=== PATIENT | male | born 1990 ===

== ENCOUNTER 2017-09-18 20:06 | Observation (INO) | payer MEDICAID ==
--- NOTE | 2017-09-18 20:08 | ED PDOC ---
"Arrival/HPI - General Time Seen by Provider: 09/18/17 20:08 Historian: Patient - History of Present Illness Narrative History of Present Illness (Text): 09/18/17 20:08 27 y/o male, pmh including gastric by pass in 2010 at [facility], [place], c/o epigastric and lt. lower quadrant abdominal pain started yesterday. pt. stated that he has epigastric and lt. sided abdominal pain, associated with diarrhea and feeling nauseous, no vomiting, no palpitation, no numbness or tingling, no rash, no night sweat, no rash, no other medical or psychological complaints. Past Medical History - Provider Review Nursing Documentation Reviewed: Yes Family/Social History - Physician Review Nursing Documentation Reviewed: Yes Family/Social History: Unknown Family HX Allergies/Home Meds Allergies/Adverse Reactions: Allergies No Known Allergies Allergy (Verified 09/18/17 20:14) Home Medications: Home Meds Medication Instructions Recorded Confirmed No Known Home Med 09/18/17 09/18/17 Review of Systems - Review of Systems Constitutional: absent: Fatigue, Fevers Eyes: absent: Vision Changes ENT: absent: Hearing Changes Respiratory: absent: SOB, Cough Cardiovascular: Syncope. absent: Chest Pain Gastrointestinal: Abdominal Pain, Diarrhea, Nausea. absent: Vomiting Skin: absent: Rash, Pruritis Neurological: absent: Headache, Dizziness, Facial Droop Psychiatric: absent: Anxiety, Depression Physical Exam Vital Signs Reviewed: Yes Vital Signs Temp Pulse Resp BP Pulse Ox 09/19/17 00:37 77 18 143/83 95 09/18/17 22:50 75 18 136/75 100 09/18/17 20:14 98.5 F 94 H 18 130/87 95 Temperature: Afebrile Blood Pressure: Normal Pulse: Regular Respiratory Rate: Normal Appearance: Positive for: Well-Appearing, Non-Toxic, Comfortable Pain Distress: Mild Mental Status: Positive for: Alert and Oriented X 3 - Systems Exam Head: Present: Atraumatic, Normocephalic Pupils: Present: PERRL Extroacular Muscles: Present: EOMI Conjunctiva: Present: Normal Mouth: Present: Moist Mucous Membranes Neck: Present: Normal Range of Motion Respiratory/Chest: Present: Clear to Auscultation, Good Air Exchange. No: Respiratory Distress, Accessory Muscle Use Cardiovascular: Present: Regular Rate and Rhythm, Normal S1, S2. No: Murmurs Abdomen: Present: Tenderness (epigastric and LLQ region, no cva tenderness, no rash, ), Normal Bowel Sounds. No: Distention, Peritoneal Signs, Rebound, Guarding Back: Present: Normal Inspection Upper Extremity: Present: Normal Inspection. No: Cyanosis, Edema Lower Extremity: Present: Normal Inspection. No: Edema Neurological: Present: GCS=15, Speech Normal, Motor Func Grossly Intact, Gait Normal, Memory Normal Skin: Present: Warm, Dry, Normal Color. No: Rashes Psychiatric: Present: Alert, Oriented x 3, Normal Insight, Normal Concentration Medical Decision Making ED Course and Treatment: 09/18/17 20:31 -labs/ua/rapid flu -CT abdomen and pelvis -IVF/pepcid/reglan -Observe and reassess 09/18/17 22:17 -Pt. just vomitted in the CT and has abdominal pain, morhine 4mg IV and zofran IV ordered. 09/18/17 23:23 -Labs are non-significant -Rapid flu is negative -UA pending -EKG: NSR @ 84 BPM, no ST elevation or depression, no T wave inversion. -Chest xray: no active disease -CT abdomen and pelvis: Dilatation of small bowel is visualized with multiple air-fluid levels. This is concerning for obstruction. There is a mildly enlarged mesenteric lymph node within the right lower quadrant measuring 1.3 x 0.8 cm, suggestive of mesenteric adenitis. Two 3 mm nodules are visualized within the right lung. -Pt. continuous vomiting, NG tube ordered. -admitting team paged. 09/19/17 00:10 -I spoke to the vice president underwriting Dr. Drew, discussed about the case, will come to evaluate the patient -I spoke to the surgical attending Dr. Duval, discussed about the case/labs/ radiology result, agreed to admit to her service. - Lab Interpretations Lab Results: 09/18/17 20:39 09/18/17 20:39 Lab Results 09/18/17 21:45: Urine Color Yellow, Urine Appearance Clear, Urine pH 6.0, Ur Specific [place] >= 1.030, Urine Protein Negative, Urine Glucose (UA) Negative, Urine Ketones Negative, Urine Blood Negative, Urine Nitrate Negative, Urine Bilirubin Negative, Urine Urobilinogen 0.2, Ur Leukocyte Esterase Negative 09/18/17 20:39: WBC 11.0, RBC 5.22, Hgb 16.1, Hct 49.3, MCV 94.4, MCH 30.8, MCHC 32.7, RDW 12.9, Plt Count 284, MPV 9.6, Gran % 76.5 H, Lymph % (Auto) 15.3 L, Towns % (Auto) 7.5 H, Eos % (Auto) 0.6 L, Baso % (Auto) 0.1, Gran # 8.38 H, Lymph # 1.7, Towns # 0.8 H, Eos # 0.1, Baso # 0.01 09/18/17 20:39: Sodium 138, Potassium 3.7, Chloride 105, Carbon Dioxide 21, Anion Gap 16, BUN 13, Creatinine 0.9, Est GFR ( Amer) > 60, Est GFR (Non- Af Amer) > 60, Random Glucose 108, Calcium 9.3, Magnesium 2.0, Total Bilirubin 0.7, AST 22, ALT 40, Alkaline Phosphatase 64, Total Protein 7.9, Albumin 4.3, Globulin 3.6, Albumin/Globulin Ratio 1.2, Lipase 41 09/18/17 20:39: PT 12.3, INR 1.08, APTT 31.5 09/18/17 20:39: Influenza Typ A,B (EIA) Negative for flu a/b - RAD Interpretation Radiology Orders: 09/18/17 20:27 ABD & PELVIS IV CONTRAST ONLY [CT] Stat 09/18/17 23:21 CHEST PORTABLE [RAD] Stat FINDINGS: Lower thorax: Mild patchy groundglass density and atelectatic changes are visualized within both lower lobes. Two 3 mm nodules are visualized within the right lung. ABDOMEN: Liver: No mass. Gallbladder and bile ducts: No calcified stones. No ductal dilation. Pancreas: Normal contour, without acute peripancreatic stranding. Spleen: No splenomegaly. Adrenals: No mass. REGIS DON | Final Radiology Report CONFIDENTIALITY STATEMENT This report is intended only for use by the referring physician, and only in accordance with law. If you received this in error, call [phone]. Page 2 of 2 Kidneys and ureters: No hydronephrosis. No solid mass. Stomach and bowel: Dilatation of small bowel is visualized with multiple air- fluid levels. This is concerning for obstruction, although a focal transition point is not visualized. Appendix: Not visualized. PELVIS: Bladder: No bladder stones visualized. Reproductive: Unremarkable as visualized. ABDOMEN and PELVIS: Intraperitoneal space: No free air. Bones/joints: Posterior disc bulging is visualized from L3-4 through L5-S1. Soft tissues: There is bilateral gynecomastia. There is a small herniation of fat into the umbilicus. Vasculature: No abdominal aortic aneurysm. Lymph nodes: There is a mildly enlarged mesenteric lymph node within the right lower quadrant measuring 1.3 x 0.8 cm, suggestive of mesenteric adenitis. Additional small mesenteric lymph nodes are visualized. IMPRESSION: 1. Dilatation of small bowel is visualized with multiple air-fluid levels. This is concerning for obstruction. 2. There is a mildly enlarged mesenteric lymph node within the right lower quadrant measuring 1.3 x 0.8 cm, suggestive of mesenteric adenitis. 3. Two 3 mm nodules are visualized within the right lung. 4. Incidental/non-acute findings are described above. Thank you for allowing us to participate in the care of your patient. Dictated and Authenticated by: Keenan Ruiz MD 09/18/2017 11:16 PM Eastern Time ([place] & [place]) Chest xray: no active pulmonary disease [employer] Worker: Radiologist - EKG Interpretation EKG Interpretation (Text): 09/20/17 14:47 NSR @ 85 BPM, no ST elevation or depression, T wave inversion on lead III. Interpreted by ED Physician: Yes Type: 12 lead EKG - Medication Orders Current Medication Orders: Discontinued Medications Famotidine (Pepcid) 20 mg IVP STAT STA Stop: 09/18/17 20:28 Last Admin: 09/18/17 20:44 Dose: 20 mg IVP Administration Document 09/18/17 20:44 AD (Rec: 09/18/17 20:44 AD [id number]) Charges for Administration # of IVP Administrations 1 Famotidine (Pepcid) 20 mg IVP Q12 [facility] Last Admin: 09/19/17 10:12 Dose: 20 mg IVP Administration Document 09/19/17 10:12 MCV (Rec: 09/19/17 10:13 MCV [id number]) Charges for Administration # of IVP Administrations 1 Hydromorphone HCl (Dilaudid) 0.5 mg IVP Q6H PRN PRN Reason: Pain, moderate (4-7) Last Admin: 09/19/17 07:02 Dose: 0.5 mg MAR Pain Assessment Document 09/19/17 07:02 [facility] (Rec: 09/19/17 07:03 [id number]) Pain Reassessment Is this a pain reassessment? No Presence of Pain Presence of Pain Yes Pain Scale Used Pain Scale Used Numeric Location Upper or Lower Upper Pain Location Body Site Abdomen Description Description Constant Intensity of Pain at present 8 Acceptable Level of Pain 2 Pain Behavior Facial Grimacing Alleviating Factors/Management Medication Techniques Alleviating Factors Medication IVP Administration Document 09/19/17 07:02 [facility] (Rec: 09/19/17 07:03 [id number]) Charges for Administration # of IVP Administrations 1 Sodium Chloride (Sodium Chloride 0.9%) 1,000 mls @ 100 mls/hr IV .Q10H [facility] Last Admin: 09/18/17 20:44 Dose: 100 mls/hr eMAR Start Stop Document 09/18/17 20:44 AD (Rec: 09/18/17 20:44 AD [id number]) Intravenous Solution Start Date 09/18/17 Start Time 20:44 Lactated Ringer's (Lactated Ringer's) 1,000 mls @ 150 mls/hr IV .Q6H40M [facility] Last Admin: 09/19/17 07:09 Dose: 150 mls/hr eMAR Start Stop Document 09/19/17 07:09 [facility] (Rec: 09/19/17 07:10 [id number]) Intravenous Solution Start Date 09/19/17 Start Time 07:10 Metoclopramide HCl (Reglan) 10 mg IVP STAT STA Stop: 09/18/17 20:28 Last Admin: 09/18/17 20:44 Dose: 10 mg IVP Administration Document 09/18/17 20:44 AD (Rec: 09/18/17 20:44 AD [id number]) Charges for Administration # of IVP Administrations 1 Metoclopramide HCl (Reglan) 10 mg IVP Q8H [facility] Stop: 09/20/17 06:01 Last Admin: 09/19/17 15:00 Dose: 10 mg IVP Administration Document 09/19/17 15:00 MCV (Rec: 09/19/17 15:23 [place] [id number]) Charges for Administration # of IVP Administrations 1 Morphine Sulfate (Morphine) 4 mg IVP STAT STA Stop: 09/18/17 22:15 Last Admin: 09/18/17 22:26 Dose: 4 mg MAR Pain Assessment Document 09/18/17 22:26 AD (Rec: 09/18/17 22:27 AD [id number]) Pain Reassessment Is this a pain reassessment? No Presence of Pain Presence of Pain Yes Location Left, Right or Bilateral Left Pain Location Body Site Abdomen Description Intensity of Pain at present 8 Pain Behavior Facial Grimacing IVP Administration Document 09/18/17 22:26 AD (Rec: 09/18/17 22:27 AD [id number]) Charges for Administration # of IVP Administrations 1 Morphine Sulfate (Morphine) 2 mg IVP Q4H PRN PRN Reason: Pain, moderate (4-7) Last Admin: 09/19/17 15:00 Dose: 2 mg MAR Pain Assessment Document 09/19/17 15:00 [facility] (Rec: 09/19/17 15:00 [id number]) Pain Reassessment Is this a pain reassessment? No Pain Scale Used Pain Scale Used Numeric Location Pain Location Body Site Abdomen Description Description Constant Intensity of Pain at present 7 Pain Behavior Facial Grimacing Aggravating Factors None Alleviating Factors/Management Medication Techniques Alleviating Factors Medication IVP Administration Document 09/19/17 15:00 MCV (Rec: 09/19/17 15:00 [place] [id number]) Charges for Administration # of IVP Administrations 1 Ondansetron HCl (Zofran Inj) 8 mg IVP STAT STA Stop: 09/18/17 22:15 Last Admin: 09/18/17 22:26 Dose: 8 mg IVP Administration Document 09/18/17 22:26 AD (Rec: 09/18/17 22:26 AD [id number]) Charges for Administration # of IVP Administrations 1 Ondansetron HCl (Zofran Inj) 4 mg IVP Q4H PRN PRN Reason: Nausea/Vomiting Last Admin: 09/19/17 10:10 Dose: 4 mg IVP Administration Document 09/19/17 10:10 MCV (Rec: 09/19/17 10:10 [facility]CV [id number]) Charges for Administration # of IVP Administrations 1 - PA / NEUROLOGY EPILEPSY PHYSICIAN / Resident Statement MD/DO has reviewed & agrees with the documentation as recorded. Disposition/Present on Arrival - Present on Arrival Any Indicators Present on Arrival: No History of DVT/PE: No History of Uncontrolled Diabetes: No Urinary Catheter: No History of Decub. Ulcer: No - Disposition Have Diagnosis and Disposition been Completed?: Yes Diagnosis: Small bowel obstruction, Lung nodule, Mesenteric adenitis Disposition: HOSPITALIZED Disposition Time: 23:23 Patient Plan: Admission Condition: STABLE"
[2017-09-18] MEDS ORDERED: Sodium Chloride 0.9% 1,000 ML IV SCH (20:30)
[2017-09-18 20:48] LABS: BASO # 0.01 K/mm3 (0.0-2.0); BASO % 0.1 % (0.0-3.0); EOS # 0.1 (0.0-0.7); EOS % 0.6 % (1.5-5.0); GRAN # 8.38 (1.4-6.5); GRAN % 76.5 % (50.0-68.0); HEMOGLOBIN 16.1 g/dL (14.0-18.0); LYMPH # 1.7 (1.2-3.4); LYMPH % 15.3 % (22.0-35.0); MEAN CELL VOLUME 94.4 fl (80.0-105.0); MEAN CORPUSCULAR HEMOGLOBIN 30.8 pg (25.0-35.0); MEAN CORPUSCULAR HGB CONC 32.7 g/dl (31.0-37.0); MEAN PLATELET VOLUME 9.6 fl (7.0-11.0); MONO # 0.8 (0.1-0.6); MONO % 7.5 % (1.0-6.0); RBC 5.22 10^6/uL (3.5-6.1); RED CELL DISTRIBUTION WIDTH 12.9 % (11.5-14.5)
[2017-09-18 20:53] LABS: ALB/GLOB RATIO 1.2 (1.1-1.8); ALBUMIN 4.3 g/dL (3.0-4.8); ALT/SGPT 40 U/L (7-56); AST/SGOT 22 U/L (17-59); BLOOD UREA NITROGEN 13 mg/dL (7-21); CALCIUM 9.3 mg/dL (8.4-10.5); GFR AFRICAN-AMERICAN > 60; GFR NON-AFRICAN AMERICAN > 60; LIPASE 41 U/L (23-300)
[2017-09-18 20:55] LABS: INR 1.08 (0.93-1.08); PARTIAL THROMBOPLASTIN TIME 31.5 Seconds (25.1-36.5); PROTHROMBIN TIME 12.3 SECONDS (9.4-12.5)
[2017-09-18] MEDS ORDERED: Iohexol 350 MG/100 ML VIAL ONE (21:44)
[2017-09-18] MEDS ORDERED: Morphine 4 mg/ml ISec IVP STA (22:14)
[2017-09-18 23:16] LABS: URINE BILIRUBIN NEGATIVE (NEGATIVE); URINE BLOOD NEGATIVE (NEGATIVE); URINE GLUCOSE (UA) NEGATIVE (NEGATIVE); URINE LEUKOCYTE ESTERASE NEGATIVE Leu/uL (NEGATIVE); URINE NITRATE NEGATIVE (NEGATIVE); URINE PROTEIN NEGATIVE mg/dL (<30 mg/dL); URINE UROBILINOGEN 0.2 E.U./dL (<1 E.U./dL)
--- NOTE | 2017-09-18 23:17 | CT ---
EXAM: CT Abdomen and Pelvis With Intravenous Contrast EXAM DATE/TIME: 09/18/2017 8:27 PM CLINICAL HISTORY: The patient age is 27 years old and is male; Pain; Abdominal pain; Localized; Other: Mid abdominal pain; Prior surgery; Surgery date: 6+ months; Surgery type: Ap, gastric bypass; Additional info: Lt. Sided abdominal pain with diarrhea Facility exam id and description: Ct abdpelciv abd pelvis iv contrast only TECHNIQUE: Axial computed tomography images of the abdomen and pelvis with intravenous contrast. All CT scans at this facility use one or more dose reduction techniques, viz.: automated exposure control; ma/kV adjustment per patient size (including targeted exams where dose is matched to indication; i.e. head); or iterative reconstruction technique. Coronal and sagittal reformatted images were created and reviewed. CONTRAST: 95 mL of omni 350 administered intravenously. COMPARISON: No relevant prior studies available. FINDINGS: Lower thorax: Mild patchy groundglass density and atelectatic changes are visualized within both lower lobes. Two 3 mm nodules are visualized within the right lung. ABDOMEN: Liver: No mass. Gallbladder and bile ducts: No calcified stones. No ductal dilation. Pancreas: Normal contour, without acute peripancreatic stranding. Spleen: No splenomegaly. Adrenals: No mass. Kidneys and ureters: No hydronephrosis. No solid mass. Stomach and bowel: Dilatation of small bowel is visualized with multiple air-fluid levels. This is concerning for obstruction, although a focal transition point is not visualized. Appendix: Not visualized. PELVIS: Bladder: No bladder stones visualized. Reproductive: Unremarkable as visualized. ABDOMEN and PELVIS: Intraperitoneal space: No free air. Bones/joints: Posterior disc bulging is visualized from L3-4 through L5-S1. Soft tissues: There is bilateral gynecomastia. There is a small herniation of fat into the umbilicus. Vasculature: No abdominal aortic aneurysm. Lymph nodes: There is a mildly enlarged mesenteric lymph node within the right lower quadrant measuring 1.3 x 0.8 cm, suggestive of mesenteric adenitis. Additional small mesenteric lymph nodes are visualized. IMPRESSION: 1. Dilatation of small bowel is visualized with multiple air-fluid levels. This is concerning for obstruction. 2. There is a mildly enlarged mesenteric lymph node within the right lower quadrant measuring 1.3 x 0.8 cm, suggestive of mesenteric adenitis. 3. Two 3 mm nodules are visualized within the right lung. 4. Incidental/non-acute findings are described above.
[2017-09-18 23:21] LABS: URINE APPEARANCE CLEAR (CLEAR); URINE COLOR YELLOW (YELLOW)
--- NOTE | 2017-09-19 00:17 | CP.PCM.HP ---
History of Present Illness - History of Present Illness History of Present Illness: Surgery: Dr. Duval Pt is a 27M with PMHx significant for HTN and high cholesterol who presented to [facility] with complaints of abdominal pain x 1 day. Pt states the pain started yesterday morning accompanied by diarrhea. He describes the pain as dull and generalized with no aggravating or alleviating symptoms. Initially he attributed the pain to possible gastroenteritis since other people at home are having similar complaints of abdominal pain & diarrhea. However, as the day progressed his pain got worse and he decided to come to the hospital. Pt denies having this pain in the past. Pt also had one episode of vomiting in the ER. He denies any blood in his vomitus or diarrhea. Pt denies flatus but admits to loose watery diarrhea. Admits to subjective fevers and chills at home. Denies chest pain or SOB. In the ER, pt had a CT abdomen/pelvis which shows multiple dilated SB loops with air fluid levels concerning for obstruction. Surgery called to evaluate. PMHx: HTN, HLD PSHx: Sleeve gastrectomy (2010) SocialHx: denies smoking, social EtOH Allergies: none Present on Admission - Present on Admission Any Indicators Present on Admission: No Review of Systems - Review of Systems All systems: reviewed and no additional remarkable complaints except (as per HPI ) Past Patient History - Past Social History Smoking Status: hooka - CARDIAC Hx Hypertension: Yes - PULMONARY Hx Respiratory Disorders: No - ENDOCRINE/METABOLIC Hx Endocrine Disorders: No - HEMATOLOGICAL/ONCOLOGICAL Hx Blood Disorders: No - PSYCHIATRIC Hx Psychophysiologic Disorder: No Hx Substance Use: No - SURGICAL HISTORY Hx Surgeries: Yes Hx Tonsillectomy: Yes Other/Comment: Sleeve gastrectomy - ANESTHESIA Hx Anesthesia: Yes Hx Anesthesia Reactions: No Hx Malignant Hyperthermia: No Has any member of the family had a problem w/ anesthesia?: No Meds Allergies/Adverse Reactions: Allergies Allergy/AdvReac Type Severity Reaction Status Date / Time No Known Allergies Allergy Verified 09/18/17 20:14 Physical Exam - Constitutional Appears: No Acute Distress - Head Exam Head Exam: ATRAUMATIC, NORMOCEPHALIC - Eye Exam Eye Exam: Normal appearance - ENT Exam ENT Exam: Mucous Membranes Moist - Respiratory Exam Respiratory Exam: NORMAL BREATHING PATTERN - Cardiovascular Exam Cardiovascular Exam: RRR - GI/Abdominal Exam GI & Abdominal Exam: Diminished Bowel Sounds, Soft, Tenderness (generalized, more procnouced in the epigastrium ). absent: Distended, Guarding, Rebound - Extremities Exam Extremities exam: Negative for: tenderness - Neurological Exam Neurological exam: Alert, Oriented x3 - Skin Skin Exam: Dry, Warm Results - Vital Signs Recent Vital Signs: Last Vital Signs Temp 98.5 F 09/18/17 20:14 Pulse 75 09/18/17 22:50 Resp 18 09/18/17 22:50 BP 136/75 09/18/17 22:50 Pulse Ox 100 09/18/17 22:50 - Labs Result Diagrams: 09/19/17 05:30 09/19/17 05:30 - Imaging and Cardiology CT scan - abdomen Status: Image reviewed by me, Report reviewed by me Assessment & Plan - Assessment and Plan (Free Text) Assessment: 27M with likely partial SBO Plan: - admit to surgery - keep npo with IVF - pain management - NGT attempted but hitting resistance, will cont to monitor - serial abdominal exams - d/w Dr. Mukund Jeffers, PGY-3 Surgery
[2017-09-19] MEDS: Lactated Ringer's 1,000 ML IV SCH ×2 (00:34→07:09)
[2017-09-19] MEDS: HYDROmorphone 0.5 mg/0.5 ml ISec IVP PRN ×2 (00:35→07:02)
[2017-09-19 05:49] LABS: HEMOGLOBIN 15.8 g/dL (14.0-18.0); MEAN CELL VOLUME 94.5 fl (80.0-105.0); MEAN CORPUSCULAR HEMOGLOBIN 30.9 pg (25.0-35.0); MEAN CORPUSCULAR HGB CONC 32.7 g/dl (31.0-37.0); MEAN PLATELET VOLUME 9.5 fl (7.0-11.0); RBC 5.11 10^6/uL (3.5-6.1); WHITE BLOOD COUNT 11.7 10^3/ul (4.5-11.0)
[2017-09-19 06:06] LABS: BLOOD UREA NITROGEN 7 mg/dL (7-21); CALCIUM 9.1 mg/dL (8.4-10.5); GFR AFRICAN-AMERICAN > 60; GFR NON-AFRICAN AMERICAN > 60
[2017-09-19 08:17] VITALS: BP 142/88; PULSE 82; RESP 20; TEMP 99.2; O2SAT 94
[2017-09-19] MEDS ORDERED: Morphine 2 mg/ml ISec IVP PRN (08:38)
[2017-09-19] MEDS ORDERED: Famotidine 20mg/50ml 20 MG in Premixed IV 50 EA IVPB SCH (10:00)
--- NOTE | 2017-09-19 10:09 | RAD ---
HISTORY: medical clearance COMPARISON: No prior. FINDINGS: LUNGS: The lungs are clear. PLEURA: No significant pleural effusion identified, no pneumothorax apparent. CARDIOVASCULAR: Normal. OSSEOUS STRUCTURES: No significant abnormalities. VISUALIZED UPPER ABDOMEN: Normal. OTHER FINDINGS: None. IMPRESSION: No active pulmonary disease.
--- NOTE | 2017-09-20 16:12 | CARD ---
APPROVED REPORT EKG Measurement Heart [id number] <Conclusion> Normal sinus rhythm Minimal voltage criteria for LVH, may be normal variant Borderline ECG
== END 2017-09-19 18:19 | disposition home or self-care (01) ==
LOC: ED 20:06 → ERH 23:25 → 5RNO 09-19 01:43
PROVIDERS: ADMIT Internal Medicine; ATTEND Specialist
DX: K56.600 Partial intestinal obstruction, unspecified as to cause (principal); I10 Essential (primary) hypertension; E78.5 Hyperlipidemia, unspecified; R91.1 Solitary pulmonary nodule; Z98.84 Bariatric surgery status
CPT/HCPCS: 36415; 71045; 74177; 80048; 80053; 81003; 83690; 83735; 85025; 85027; 85610; 85730; 87804; 93005; 96374; 96375; 96376; 99284; G0378; J1170; J2270; J2405; J2765; J7040; J7120; Q9967